=== PATIENT | female | born 1945 | race Caucasian/White ===

== ENCOUNTER → 2017-09-06 | Outpatient (CLI) | payer MEDICARE, OTHER | END | disposition home or self-care (01) | LOC: CFH 09:34 | PROVIDERS: ATTEND Family Medicine | DX: Z12.31 Encounter for screening mammogram for malignant neoplasm of breast (principal) | CPT/HCPCS: 77063; 77067 ==

== ENCOUNTER 2019-03-29 13:52 | Emergency (ER) | payer MEDICARE, OTHER ==
[~2019-03-29] VITALS: Ht 165.1 cm; Wt 61.0 kg
[2019-03-29 14:03] VITALS: BP 133/51
--- NOTE | 2019-03-29 14:30 | NUR ---
THIS IS A 73 YO F W/ C/O NECK AND BACK PAIN X10 DAYS. PATIENTS RESPIRATIONS ARE EVEN AND UNLABORED. PATIENT IS IN NO ACUTE DISTRESS. PATIENT RESTING ON GURNEY CONVERSING WITH FAMILY AT BEDSIDE. CALL LIGHT IN REACH. DENIES FURTHER NEEDS AT THIS TIME.
--- NOTE | 2019-03-29 16:37 | NUR ---
PATIENT BACK FROM IMAGING.
--- NOTE | 2019-03-29 17:21 | NUR ---
Patient given discharge instructions and they have confirmed that they understand the instructions. Patient ambulatory with steady gait.
== END 2019-03-29 17:23 | disposition home or self-care (01) ==
LOC: ED 16:53
DX: M54.6 Pain in thoracic spine (principal); M54.2 Cervicalgia
CPT/HCPCS: 72072; 72141; 72146; 99284

== ENCOUNTER → 2020-09-21 | Outpatient (CLI) | payer MEDICARE, OTHER | END | disposition home or self-care (01) | LOC: CFH 10:17 | PROVIDERS: ATTEND Family Medicine | DX: M81.0 Age-related osteoporosis without current pathological fracture (principal); M85.80 Other specified disorders of bone density and structure, unspecified site; M54.9 Dorsalgia, unspecified; M54.2 Cervicalgia | CPT/HCPCS: 77080 ==

== ENCOUNTER 2020-12-12 17:14 | Emergency (ER) | payer MEDICARE, OTHER ==
[~2020-12-12] VITALS: Ht 162.6 cm; Wt 55.0 kg
== END 2020-12-12 17:33 | disposition home or self-care (01) ==
LOC: ED 17:27
DX: R05 Cough (principal); Z20.822 Contact with and (suspected) exposure to COVID-19
CPT/HCPCS: 87635; 99283